=== PATIENT | female | born 1965 | race Caucasian/White ===

== ENCOUNTER 2020-11-01 07:54 | Emergency (ER) | payer OTHER ==
[2020-11-01] MEDS ORDERED: IBUPROFEN600 MG PO (08:57)
== END 2020-11-01 09:05 | disposition home or self-care (01) ==
LOC: ER1 07:54
DX: S60.211A Contusion of right wrist, initial encounter (principal); E11.9 Type 2 diabetes mellitus without complications; E78.5 Hyperlipidemia, unspecified; W01.0XXA Fall on same level from slipping, tripping and stumbling without subsequent striking against object, initial encounter; Y92.009 Unspecified place in unspecified non-institutional (private) residence as the place of occurrence of the external cause
CPT/HCPCS: 73110; 73130; 99283